=== PATIENT | female | born 1990 | race Caucasian/White ===

== ENCOUNTER 2022-06-05 08:12 | Emergency (ER) | payer OTHER, SELFPAY ==
[2022-06-05 08:22] VITALS: BP 145/78; PULSE 82; RESP 16; TEMP 36.4; O2SAT 99
--- NOTE | 2022-06-05 08:30 | ED.SKABFB ---
HPI - Skin/Abscess/Foreign Bdy General Chief complaint: Skin/Abscess/Foreign Body Stated complaint: Bump,Boil Lower Back Time Seen by Provider: 06/05/22 08:30 Source: patient Mode of arrival: ambulatory Limitations: no limitations History of Present Illness HPI narrative: 31 year old female presented for complaints of pain and swelling to the tailbone for about 1 week. She denies any active drainage from site, nausea, vomiting, fevers or chills. She denies history of abscesses or boils. No taking anything for pain. She states for the last year she has had increased ingrown hairs. could not get in with pcp. Related Data Allergies Allergy/AdvReac Type Severity Reaction Status Date / Time No Known Allergies Allergy Verified 06/05/22 08:25 Review of Systems Review of Systems: CONSTITUTIONAL: Denies body aches, fever, chills, or sweats. CARDIOVASCULAR: Denies chest pain, palpitations, or edema. RESPIRATORY: Denies cough or dyspnea. GASTROINTESTINAL: Denies abdominal pain, nausea, vomiting, or diarrhea. SKIN: cyst on tailbone MUSCULOSKELETAL: Denies back pain, joint pain, or myalgia. NEUROLOGIC: Denies headache, numbness, tingling, or weakness. PMFSH Comments At time of signature, I have reviewed and agree with nursing past medical, surgical, social and family history unless otherwise noted. Please see nursing chart for further information. There is no relevant family history pertinent to the presenting complaint Exam Narrative: GENERAL: Well-appearing EYES: conjunctivae clear, and EOMI. ENT: Mucous membranes moist. Oropharynx without edema, erythema or lesions. NECK: Supple. No lymphadenopathy CHEST: Clear to auscultation. HEART: Regular rate and rhythm. SKIN: Warm, dry. mild swelling and firm subcutaneous tissue approx 4cm diameter to coccyx area, symmetrical, tender with palpation, c/w pilonidal cyst, no erythema or fluctuance. NEURO: Alert and oriented x3. Course Course Emergency Course: Patient is aware of diagnosis, understands and agrees to treatment plan. Anticipatory guidance given. Patient agrees to follow-up as directed and is aware of reasons to seek care at the emergency department. Portions of this record may have been created with voice recognition software Level of Care: Express Care Visit Vital Signs Vital signs: Vital Signs Temperature 97.5 F L 06/05/22 08:22 Pulse Rate 82 06/05/22 08:22 Respiratory Rate 16 06/05/22 08:22 Blood Pressure 145/78 H 06/05/22 08:22 Pulse Oximetry 99 06/05/22 08:22 Oxygen Delivery Room Air 06/05/22 08:22 Temperature 97.5 F L 06/05/22 08:22 Pulse Rate 82 06/05/22 08:22 Respiratory Rate 16 06/05/22 08:22 Blood Pressure 145/78 H 06/05/22 08:22 Pulse Oximetry 99 06/05/22 08:22 Oxygen Delivery Room Air 06/05/22 08:22 Reviewed MDM - Skin/Abscess/Foreign Bdy MDM Narrative Medical decision making narrative: Noted to have pilonidal cyst on exam, no indication for I&D without fluctuance. She is aware to f/u with surgeon/derm. Rx doxy. Aware of s/s to monitor and go to the ER. Instructed patient to go to nearest ER immediately for any worsening symptoms including but not limited to: fever, pain, swelling or any symptoms concerning to the patient. Patient is appropriate for outpatient treatment and follow-up. Differential Diagnosis Differential diagnosis: Likely abscess of skin or subcutaneous tissue, urticaria, herpes zoster, cellulitis and contact dermatitis Discharge Plan Discharge Clinical Impression: Pilonidal cyst Patient Disposition: Home, Self-Care Condition: Stable Instructions: Antibiotic Form, Pilonidal Cyst (ED), Abscess (ED) Additional Instructions: Cleanse site with warm soapy water Keep your wound covered if draining Warm compresses at least 4 times a day to the site to help expel any additional drainage. Take antibiotic as directed Tylenol and ibuprofen every 8 hours for pain as needed
== END 2022-06-05 08:50 | disposition home or self-care (01) ==
PROVIDERS: Emergency Provider Nurse Practitioner Family; PCP Family Medicine
DX: L05.91 Pilonidal cyst without abscess (principal)
CPT/HCPCS: 99213; G0463

== ENCOUNTER 2023-01-13 08:39 | Emergency (ER) | payer OTHER, SELFPAY ==
--- NOTE | ~2023-01-13 | XR_ITS ---
EXAMINATION: XR chest 2V 01/13/2023 09:12 INDICATION: Cough for one month PROCEDURE: 2 view chest COMPARISON: 05/31/2016 FINDINGS: The lungs are clear. The cardiomediastinal silhouette is within normal limits. There are no pleural effusions. There is no pneumothorax suspected. IMPRESSION: 1: NO ACUTE CARDIOPULMONARY DISEASE. Reviewed, dictated and finalized at location []
[2023-01-13 08:53] VITALS: BP 130/78; PULSE 88; RESP 18; TEMP 36.3; O2SAT 99
--- NOTE | 2023-01-13 09:11 | ED.URI ---
HPI - URI/Sore Throat General Chief Complaint: Upper Respiratory Infection Stated Complaint: sob Source: patient Mode of arrival: ambulatory Limitations: no limitations History of Present Illness HPI Narrative: 32-year-old female presents to [facility] with complaints of intermittent nonproductive cough for the past month. Patient reports history of seasonal allergies and has been taking Zyrtec for the past 10 days with no relief. Patient denies shortness of breath, wheezing, fever, rigors, chills, nausea vomiting or diarrhea. Patient reports that talking and laughing exacerbate her cough and rest improves her cough. Patient also has been using cough drops. Patient denies sick contacts. Patient reports that she did travel to [place] approximately 2 weeks ago but symptoms started prior to travel MD elicited complaint: cough Onset (ago): month(s) (1) Consistency: intermittent Able to tolerate fluids by mouth: Yes Exacerbating factors: speaking Relieving factors: rest Associated symptoms: denies other symptoms Related Data Allergies Allergy/AdvReac Type Severity Reaction Status Date / Time No Known Allergies Allergy Verified 01/13/23 08:59 Review of Systems Constitutional: Constitutional: Denies chills, Denies fatigue, Denies fever(s) and Denies weakness ENT: Denies vertigo and Denies dizziness Cardiovascular: Cardiovascular: Denies chest pain Respiratory: Respiratory: Reports cough, Denies dyspnea and Denies wheezing Gastrointestinal: Gastrointestinal: Denies diarrhea, Denies nausea and Denies vomiting Integumentary/Breasts: Skin/Breast: Denies rash and Denies skin ulcer Neurologic: Denies dizziness, Denies syncope and Denies headache(s) PMFSH Comments At time of signature, I agree with nursing past medical, surgical, social and family history. There is no relevant family history pertinent to the presenting complaint. Exam Const: General: healthy appearing and no acute distress Nutritional Appearance: well nourished Orientation/consciousness: patient oriented x3 Limitations: no limitations HENMT: Head: normal to inspection Ears: external ears normal, TM's normal bilaterally and EAC's normal Face/Nose/Sinus: Normal external nose present Face and sinus: normal facial exam Mouth: Yes Normal oral and palatal mucosa present and Yes moist mucous membranes Teeth and gingiva: dentition normal Throat: posterior oropharynx normal and uvula midline Eyes: Conjunctivae: conjunctivae normal Neck: Neck: normal visual inspection Resp: Effort & Inspection: normal respiratory effort and not labored Auscultation: clear to auscultation bilaterally, no crackles, no rales, no rhonchi and no wheezes Cardio: Rate: regular rate Rhythm: regular rhythm Heart sounds: no murmurs Skin: General skin exam: normal color Rashes: no rashes Neuro: General: patient oriented x3 Speech: normal speech Psych: Mental Status: mental status grossly normal Affect: normal affect Attitude: cooperative Course Course Level of Care: Express Care Visit Vital Signs Vital signs: Vital Signs Temperature 36.3 C L 01/13/23 08:53 Pulse Rate 88 01/13/23 08:53 Respiratory Rate 18 01/13/23 08:53 Blood Pressure 130/78 01/13/23 08:53 Pulse Oximetry 99 01/13/23 08:53 Oxygen Delivery Room Air 01/13/23 08:53 Temperature 36.3 C L 01/13/23 08:53 Pulse Rate 88 01/13/23 08:53 Respiratory Rate 18 01/13/23 08:53 Blood Pressure 130/78 01/13/23 08:53 Pulse Oximetry 99 01/13/23 08:53 Oxygen Delivery Room Air 01/13/23 08:53 MDM - URI/Sore Throat MDM Narrative Medical decision making narrative: Encouraged patient to continue Zyrtec daily. Informed patient follow-up with primary care provider if symptoms do not improve. Informed patient to proceed to the emergency room if symptoms worsen Differential Diagnosis Differential diagnosis: Likely otitis media, sinusitis and viral infection Imaging Data Radi
== END 2023-01-13 09:21 | disposition home or self-care (01) ==
PROVIDERS: Emergency Provider Nurse Practitioner Family; PCP Family Medicine
DX: J06.9 Acute upper respiratory infection, unspecified (principal)
CPT/HCPCS: 71046; 99213; G0463

== ENCOUNTER 2023-10-27 09:47 | Outpatient (CLI) | payer OTHER, SELFPAY ==
--- NOTE | ~2023-10-27 | MMUS_ITS ---
EXAMINATION: MM diagnostic deepak BI w emelia, US breast BI complete HISTORY: Right breast pain. Left breast lump. TECHNIQUE: Additional 3-D tomosynthesis images of the breasts were performed and synthetic 2-D images were generated. CAD analysis was submitted and interpreted. High resolution complete bilateral breas t ultrasound was performed. COMPARISON: None BREAST PARENCHYMAL COMPOSITION: Dense: The breasts are heterogeneously dense, which may obscure small masses FINDINGS: MAMMOGRAPHIC FINDINGS: There is asymmetric tissue in the upper outer quadrant of the right breast which is less dense with s pot compression and mediolateral views. No discrete mass identified, likely superimposed fibroglandul ar tissue. No mammographic evidence for malignancy in the left breast. ULTRASOUND: Complete bilateral US of all 4 quadrants of the breasts and retroareolar region was reviewed. Normal heterogeneous echotexture in both breasts without solid or cystic mass. IMPRESSION: 1. Probable benign asymmetric fibroglandular tissue in the upper outer quadrant of the right breast w ithout sonographic correlate. No evidence for malignancy in the left breast. 2. Recommend 6 month follow-up diagnostic right mammogram BI-RADS category 3, probably benign findings. Reviewed, dictated and finalized at location A. IMPRESSION: 1. Probable benign asymmetric fibroglandular tissue in the upper outer quadrant of the right breast without sonographic correlate. No evidence for malignancy in the left breast. 2. Recommend 6 month follow-up diagnostic right mammogram BI-RADS category 3, probably benign findings.
== END 2023-10-27 09:48 ==
PROVIDERS: PCP Nurse Practitioner; Visit Provider Nurse Practitioner
DX: N63.20 Unspecified lump in the left breast, unspecified quadrant (principal); R92.8 Other abnormal and inconclusive findings on diagnostic imaging of breast
CPT/HCPCS: 76641; 77062; 77066; G0279